=== PATIENT | female | born 1970 | race Caucasian/White ===

== ENCOUNTER 2016-08-22 09:05 | Day surgery (SDC) ==
[2016-08-22] MEDS ORDERED: BENADRYL ONE (09:33)
[2016-08-22] MEDS ORDERED: TYLENOL ONE (09:33)
[2016-08-22] MEDS ORDERED: NS 250 ML ONE (09:33)
[2016-08-22 12:53] VITALS: BP 94/68
[2016-08-22] MEDS ORDERED: HEPARIN ONE (12:54)
== END 2016-08-22 13:00 | disposition home or self-care (01) ==
LOC: INF 09:05
PROVIDERS: ATTEND Internal Medicine Hematology & Oncology
DX: D64.9 Anemia, unspecified (principal); Z79.899 Other long term (current) drug therapy; Z79.01 Long term (current) use of anticoagulants
CPT/HCPCS: 36430; 36591; 86850; 86900; 86901; 86920; J7050; P9016

== ENCOUNTER → 2016-09-15 | Day surgery (SDC) ==
[2016-09-14 13:48] LABS: HEMATOCRIT 22.5 % (37.0-47.0)
[~2016-09-15] MED LIST: BENADRYL PO ONE; HEPARIN IV ONE; NS 250 ML IV SCH; TYLENOL PO ONE; [UNRECOGNIZED DRUG - REMARK] MISC ONE
[2016-09-15 13:55] VITALS: BP 138/59
== END | disposition home or self-care (01) ==
LOC: P.INF 07:59
PROVIDERS: ATTEND Internal Medicine Hematology & Oncology
DX: C50.919 Malignant neoplasm of unspecified site of unspecified female breast (principal); D63.0 Anemia in neoplastic disease
CPT/HCPCS: 36430; 85014; 85018; 86850; 86900; 86901; 86920; 96374; J7050; P9016

== ENCOUNTER 2016-10-04 13:08 | Observation (INO) ==
[2016-10-04] MEDS ORDERED: ZOFRAN IV ONE (14:30)
[2016-10-04] MEDS ORDERED: MORPHINE IV ONE (14:30)
[2016-10-04 15:11] LABS: BASO% 0.2 % (0.0-0.8); EOS# 0.04 X1000 (0.0-0.7); EOS% 0.7 % (0.0-10.0); HEMATOCRIT 19.4 % (37.0-47.0); HEMOGLOBIN 6.3 g/dL (12.0-16.0); IMM GRAN# 0.66 X1000 (0.0-0.04); IMM GRAN% 10.9 % (0.0-0.5); LYMPH# 0.46 X1000 (1.2-3.4); LYMPH% 7.6 % (20.5-51.1); MANUAL DIFF NEEDED? YES; MCH 27.5 PG (27-31); MCHC 32.5 g/dL (33-37); MCV 84.7 FL (81-99); MONO% 9.9 % (1.7-9.3); NEUT% 70.7 % (42.2-75.2); PLT 68 X1000 (130-400); RBC 2.29 XMIL (4.2-5.4)
[2016-10-04 15:37] LABS: ALKALINE PHOSPHATASE 121 U/L (32-104); POTASSIUM 3.2 mmol/L (3.5-5.1)
[2016-10-04] MEDS ORDERED: NS 500 ML ONE (15:47)
--- NOTE | 2016-10-04 15:53 | PROVIDER DOCUMENTATION ---
This chart was entered by Joey Johnson Scribe, acting as scribe for Katelyn Veloz MD. HPI-General Adult - General Chief Complaint: Abnormal Lab[s] Stated Complaint: symptomatic anemia Time Seen by Provider: 10/04/16 13:31 Source: patient Allergies/Adverse Reactions: Patient Allergies Allergy/AdvReac Type Severity Reaction Status Date / Time No Known Allergies Allergy Verified 10/04/16 14:02 Home Medications: Home Medication List Medication Instructions Recorded Confirmed Last Taken Type Warfarin [Coumadin] 1 mg PO QHS 11/05/14 10/04/16 08/21/16 22:00 History Cetirizine HCl [Zyrtec] 10 mg PO DIRECTED 11/10/14 10/04/16 08/08/16 History Hydrocodone/APAP 10 mg/325 mg 1 each PO Q4H PRN PRN #20 tablet 09/16/1508/21/16 17:00 Rx [[place]-10] Ondansetron [Zofran] 4 mg PO Q4H PRN PRN #10 tablet 09/16/15 10/04/16 08/11/16 17:00 Rx Multivitamins/Iron [Hemocyte Plus 1 each PO DAILY #100 capsule 09/25/1508/22/16 08:00 Rx Capsule] Diphenoxylate/Atropine [Lomotil] 1 each PO 4XDAY PRN PRN 05/05/16 10/04/1607/05 History Promethazine [Phenergan] 25 mg PO Q3-4H PRN PRN 08/05/16 10/04/16 08/12/16 07: 30 History Fluconazole [Diflucan] 100 mg PO DIRECTED 08/12/16 10/04/16 08/12/16 07:00 History Levofloxacin [Levaquin] 750 mg PO DAILY #5 tablet 08/12/16 10/04/16 08/19/16 08: 00 Rx Potassium 0 mg PO DAILY 08/12/16 10/04/16 08/21/16 08:00 History - History of Present Illness -Gen Adult Nature of Presenting Problems: Patient is a 46 y/o F that presents with 48 hours of generalized weakness, fatigue, and shortness of breath with exertion. patient was at [facility] today and told she needed blood. Last blood transfusion was 3 weeks ago. Patient has Stage 4 Breast CA with mets to brain, liver, and lung. She denies fever/chills, cough, or diarrhea. Sent from 's office, H&H was 7 and 21. Location of Pain/Injury: reports: generalized Quality of Pain: reports: aching, other (weakness) Severity: reports: moderate Onset/Duration: reports: gradual, other (48 hours) Timing: reports: still present, getting worse Context/Activities at Onset: reports: none Modifying Factors: improves with: nothing Associated Symptoms: reports: EENT symptoms, fatigue, malaise, nausea, shortness of breath, vomiting, weakness. denies: back/neck pain, chest pain, diarrhea, fever/chills, genitourinary problems Similar Symptoms Previously?: Yes Recently seen or treated by another doctor?: Yes Review of Systems - Adult - REVIEW OF SYSTEMS - ADULT Constitutional: reports: fatique. denies: chills, fever Eyes: reports: no symptoms reported Ears, Nose, Mouth & Throat: reports: epistaxis. denies: ear discharge, ear pain , throat pain Cardiovascular: denies: chest pain, palpitations, syncope Respiratory: reports: dyspnea on exertion, shortness of breath Gastrointestinal: reports: nausea, vomiting. denies: abdominal pain, diarrhea Genitourinary: reports: no symptoms reported Musculoskeletal: reports: muscle weakness. denies: back pain, joint pain, neck pain Integumentary: reports: no symptoms reported Neurological: denies: dizziness/vertigo, headache/migraines, numbness, paresthesia Psychiatric: reports: no symptoms reported Endocrine: reports: no symptoms reported Hematologic/Lymphatic: reports: no symptoms reported Allergic/Immunologic: reports: no symptoms reported All Other Systems: Reviewed and Negative Past History - Adult - PAST MEDICAL HISTORY-ADULT Review of Records: reports: Old Records Reviewed, Nursing Assessment Review, Medications Reviewed Gastrointestinal: reports: other (chronic diarrhea) Obstetrical/Gynecological: reports: other (Breast CA-with mets to liver,lung, brain) - PRIOR SURGERIES/PROCEDURES Surgical/Procedure History: reports: cholecystectomy, , tonsillectomy, breast (B mastectomies) - PRIOR HOSPITALIZATIONS Prior Hospitalizations: reports: other (for n/v/d last week) - IMMUNIZATION STATUS Childhood Immunizations: UTD Flu Vaccine: See Nurse Assessment - FAMILY HISTORY Family History: reviewed, not pertinent - SOCIAL HISTORY Smoking: non-smoker Living Situation: family Physical Exam-General - PHYSICAL EXAM-ADULT Initial Vital Signs Reviewed: Yes - CONSTITUTIONAL General Appearance: alert, other (chronic ill appearing) - EYES Eyes: PERRL/EOMI, pink conjunctivae - HEAD, EARS, NOSE, MOUTH & THROAT HENMT: normocephalic/atraumatic, moist mucous membranes, normal ENT inspection - NECK Neck: full range of motion, normal inspection - RESPIRATORY Respiratory: no respiratory distress, no accessory muscle use, other (mild shortness of breath) - CARDIOVASCULAR Cardiovascular: no edema, no murmur, tachycardia - GASTROINTESTINAL (ABDOMEN) Abdominal Exam: normal bowel sounds, non tender, soft - MUSCULOSKELETAL Extremity: normal range of motion, no pedal edema, other (clubbing to fingers) - SKIN Integumentary: warm/dry, pallor - NEUROLOGIC Neurologic: grossly normal, no motor/sensory deficits - PSYCHIATRIC Psych/Mental Status: normal mood/affect, normal thought content, normal thought process, oriented x 3 Progress - PLAN OF CARE/RESULTS Progress/Plan/Lab Results: Vital Signs - 8 hr 10/04/16 13:17 Temperature 98.1 F Pulse Rate 115 H Respiratory Rate 18 Blood Pressure 101/51 O2 Sat by Pulse Oximetry 100 Vital Signs Temp Pulse Resp BP Pulse Ox 10/04/16 13:17 98.1 F 115 H 18 101/51 100 No Known Allergies Allergy (Verified 10/04/16 14:02) Warfarin [Coumadin] 1 mg PO QHS 11/05/14 Cetirizine HCl [Zyrtec] 10 mg PO DIRECTED 11/10/14 Hydrocodone/APAP 10 mg/325 mg [[place]-10] 1 each PO Q4H PRN PRN #20 tablet Ondansetron [Zofran] 4 mg PO Q4H PRN PRN #10 tablet 09/16/15 Multivitamins/Iron [Hemocyte Plus Capsule] 1 each PO DAILY #100 capsule Diphenoxylate/Atropine [Lomotil] 1 each PO 4XDAY PRN PRN 05/05/16 Promethazine [Phenergan] 25 mg PO Q3-4H PRN PRN 08/05/16 Fluconazole [Diflucan] 100 mg PO DIRECTED 08/12/16 Levofloxacin [Levaquin] 750 mg PO DAILY #5 tablet 08/12/16 Potassium 0 mg PO DAILY 08/12/16 Laboratory 10/04/16 10/04/16 14:22 14:22 WBC 6.04 RBC 2.29 L Hgb 6.3 L Hct 19.4 L MCV 84.7 MCH 27.5 MCHC 32.5 L RDW Std Deviation 18.7 H Plt Count 68 L MPV Not Reportable Immature Gran % (Auto) 10.9 H Neut % (Auto) 70.7 Lymph % (Auto) 7.6 L [place] % (Auto) 9.9 H Eos % (Auto) 0.7 Baso % (Auto) 0.2 Immature Gran # (Auto) 0.66 H Neut # (Auto) 4.27 Lymph # (Auto) 0.46 L [place] # (Auto) 0.60 H Eos # (Auto) 0.04 Baso # (Auto) 0.01 Segmented Neutrophils Cancelled Band Neutrophils Cancelled Lymphocytes Cancelled Monocytes Cancelled Eosinophils Cancelled Basophils Cancelled Metamyelocytes Cancelled Myelocytes Cancelled Promyelocytes Cancelled Nucleated RBCs Cancelled Atypical Lymphocytes Cancelled Blast Cells Cancelled Hypochromia Cancelled Vacuolization Cancelled Toxic Granulation Cancelled Dohle Bodies Cancelled Large Platelets Cancelled Polychromasia Cancelled Poikilocytosis Cancelled Basophilic Stippling Cancelled Anisocytosis Cancelled Microcytosis Cancelled Macrocytosis Cancelled Spherocytes Cancelled Sickle Cells Cancelled Target Cells Cancelled Ovalocytes Cancelled Stomatocytes Cancelled [place] Bodies Cancelled Samantha Cells Cancelled Unidentified Cells Cancelled Schistocytes Cancelled Crossmatch See Detail Orders Category Date Time Status IV Insertion ORDERED Care 10/04/16 14:29 Completed Transfuse .Give-Transfuse Care 10/04/16 14:49 Active CBC WITH DIFF [HEME] Stat Lab 10/04/16 14:22 Completed COMPREHENSIVE METABOLIC PANEL [CHEM] Stat Lab 10/04/16 14:22 Received PRBC [LRPC (RED CELLS)] [BBK] Stat Lab 10/04/16 14:22 Results TYPE & SCREEN [BBK] Stat Lab 10/04/16 14:22 Results Morphine Med 10/04/16 14:30 Discontinued 4 mg IV NOW ONE Ondansetron [Zofran] Med 10/04/16 14:30 Discontinued 4 mg IV NOW ONE Result Diagrams: 10/04/16 14:22 - CONSULTS/PCP/HOSPITALIST Notification #1 *Consult/PCP/Hospitalist*: ( airline lounge receptionist for hospitalist) Time Discussed: 15:20 Consult Disposition: Will see in ED, Admit Departure - Departure Time of Disposition Decision: 15:25 DIAGNOSIS: Breast cancer, stage 4 Qualifiers: Laterality: unspecified laterality Qualified Code(s): C50.919 - Malignant neoplasm of unspecified site of unspecified female breast Anemia Qualifiers: Anemia type: other cause Disposition: ADMITTED INPATIENT 09 Certified Medical Emergency: Emergent Condition: Stable Referrals and Follow-Ups: None,PCP [Primary Care Provider] - This chart was documented by the indicated scribe, (Joey Johnson, Scribe) and accurately reflects the services I performed and decisions made by me, Katelyn Veloz MD, as attested by the provider's signature.
--- NOTE | 2016-10-04 16:15 | Diag Imaging Result Document ---
PROCEDURE NAME: CHEST-2 VIEWS - 10/04/2016 2 VIEWS OF THE CHEST: FINDINGS: There is a Port-A-Cath on the right with its tip in the superior vena cava. There are nodular opacities in throughout the lungs, some of which are clearly larger than they were on 05/05/2016. Most notably are nodules in the right costophrenic sulcus and the right upper lobe which are clearly larger than they were previously. There is also a generalized increase in density in the retrocardiac region of the left lower lobe. IMPRESSION: Worsening metastatic disease.
[2016-10-04 16:19] LABS: INR 1.19; PROTIME 12.6 Seconds (9.2-11.7)
[2016-10-04] MEDS ORDERED: BENADRYL ONE (16:19)
[2016-10-04] MEDS ORDERED: TYLENOL ONE (16:20)
[2016-10-04 16:33] LABS: AGAP 15; ALBUMIN 2.9 g/dL (3.5-5.0); BUN 14 mg/dL (8-22); CALCIUM 7.6 mg/dL (8.8-10.2); CHLORIDE 97 mmol/L (98-107); COSMO 269; GOT 16 U/L (10-30); GPT < 5 U/L (10-36); SODIUM 134 mmol/L (136-145); TCO2 22 mmol/L (25-35); TOTAL BILIRUBIN 0.37 mg/dL (0.20-1.00); TOTAL PROTEIN 5.8 g/dL (6.3-8.3)
[2016-10-04] MEDS ORDERED: BENADRYL PO ONE (16:37)
[2016-10-04] MEDS ORDERED: TYLENOL PO ONE (16:38)
--- NOTE | 2016-10-04 16:53 | HISTORY AND PHYSICAL ---
HISTORY OF PRESENT ILLNESS: This is a 46-year-old who presented the emergency room from Dr. Charlie encarnacion. She has a history of metastatic breast cancer stage IV. She was 1st diagnosed originally in 2013, underwent bilateral mastectomies and chemotherapy and I believe radiation but was doing fine until early this year they found metastasis intraabdominal organs and various bones so skeletal metastasis as well. She received Taxol and other chemotherapy agents and this is her 2nd round of chemotherapy agents. She was at [facility] and they did some blood work. Hemoglobin was 7, when she came here hemoglobin was 6. She denies any known bleeding from any orifice. No blood in the stool that she recognized. No gross hematuria. She has just felt pretty bad, very weak with increased dyspnea on exertion and the aching all over but it is hard to tell some of this she feels is from mostly this from chemotherapy. So we plan to admit her, give her 2 units packed red blood cells. PAST MEDICAL HISTORY: Pretty unremarkable. ALLERGIES: No known drug allergies. FAMILY HISTORY: Breast cancer is in her grandmother. Apparently she did not have any genetic propensity, had screening done, she was HR positive but later but she was receptor negative. SOCIAL HISTORY: , 2 children, negative for alcohol or tobacco. PAST SURGICAL HISTORY: Bilateral mastectomy, cholecystectomy and . REVIEW OF SYSTEMS: No dramatic change in weight she although she has been losing weight.HEENT: Unremarkable. Just general malaise. Respiratory: No increased work of breathing except increased dyspnea on exertion but no orthopnea, paroxysmal nocturnal dyspnea. Cardiovascular: No chest pain or tachy palpitations. GI/: No complaints. Endocrinologic/Hematologic: No significant history. PHYSICAL EXAMINATION: GENERAL: Well developed, thin white female with conjunctiva pallor and gums as well. She appears pale. CVP less than 6 cm. LUNGS: Clear in all lung lisa. CARDIOVASCULAR: Regular rate without murmur or S3. ABDOMEN: Soft. SKIN: Is warm and dry. EXTREMITIES: Good peripheral pulses radial, carotid, femoral and popliteal. LAB: White count 6040, hematocrit is 19, hemoglobin 6.3, platelet count 68,000. Chemistries. Sodium 136, potassium 3.2, chloride 98, rest are pending right now. Albumin is 3.0. ASSESSMENT/PLAN: 1. Metastatic breast cancer with anemia suspect probably slow blood loss anemia with combination of chronic disease, chronic anemia. Will give her 2 units packed red blood cells and give her some IV fluid. 2. Metastatic breast cancer receiving chemotherapy, active chemotherapy, Dr. Guerra will follow. Note she has slightly low platelet count but her white blood cell count looks good. Will wait on her electrolytes and make sure there is no renal dysfunction as well. cc: Jose Morel MD
[2016-10-04] MEDS ORDERED: LOMOTIL PO PRN (17:54)
[2016-10-04] MEDS ORDERED: TYLENOL PO PRN (17:54)
[2016-10-04] MEDS ORDERED: ZYRTEC PO PRN (17:54)
[2016-10-04] MEDS ORDERED: PHENERGAN PO PRN (17:54)
[2016-10-04] MEDS: NS 1,000 ML IV SCH (18:08)
[2016-10-04 18:42] LABS: FREE T4 1.42 ng/dL (0.93-1.70)
[2016-10-04] MEDS: PRILOSEC PO SCH (20:14)
[2016-10-04] MEDS: NORCO-10 PO PRN (21:49)
[2016-10-05] MEDS: ZOFRAN IV PRN ×2 (01:20→06:51)
[2016-10-05] MEDS: NORCO-10 PO PRN ×3 (02:24→10:58)
[2016-10-05 04:19] LABS: URINE MICRO REVIEW NEEDED? NO; URINE SOURCE CLEAN CATCH
[2016-10-05 04:24] LABS: BILIRUBIN URINE NEGATIVE (NEGATIVE); BLOOD URINE NEGATIVE (NEGATIVE); COLOR YELLOW; GLUCOSE URINE NEGATIVE (NEGATIVE); LEUKOCYTES URINE LARGE (NEGATIVE); NITRITE URINE NEGATIVE (NEGATIVE); PROTEIN URINE NEGATIVE (NEGATIVE); SP GRAVITY URINE 1.006; TURBIDITY URINE CLEAR (CLEAR); UROBILINOGEN URINE NORMAL (NORMAL)
[2016-10-05 04:26] LABS: UR EPITHELIAL CELLS <10 /HPF (<10); URINE BACTERIA NEGATIVE /HPF; URINE CULTURE NEEDED? YES; URINE RBC <10 /HPF (<10); URINE WBC TNTC /HPF (<10)
[2016-10-05 06:36] LABS: INR 1.15; PROTIME 12.2 Seconds (9.2-11.7); PTT 36.4 Seconds (22.0-36.0)
[2016-10-05 06:38] LABS: BASO% 0.2 % (0.0-0.8); EOS# 0.05 X1000 (0.0-0.7); EOS% 0.8 % (0.0-10.0); HEMATOCRIT 25.5 % (37.0-47.0); HEMOGLOBIN 8.6 g/dL (12.0-16.0); IMM GRAN# 0.59 X1000 (0.0-0.04); LYMPH# 0.45 X1000 (1.2-3.4); LYMPH% 6.9 % (20.5-51.1); MANUAL DIFF NEEDED? YES; MCH 28.6 PG (27-31); MCHC 33.7 g/dL (33-37); MCV 84.7 FL (81-99); MONO# 0.57 X1000 (0.11-0.59); MONO% 8.7 % (1.7-9.3); NEUT% 74.4 % (42.2-75.2); PLT 56 X1000 (130-400); RBC 3.01 XMIL (4.2-5.4)
[2016-10-05] MEDS: NS 1,000 ML IV SCH (06:47)
[2016-10-05 07:00] LABS: AGAP 13; ALBUMIN 2.5 g/dL (3.5-5.0); ALKALINE PHOSPHATASE 104 U/L (32-104); BUN 10 mg/dL (8-22); CALCIUM 7.4 mg/dL (8.8-10.2); CHLORIDE 105 mmol/L (98-107); COSMO 280; GOT 13 U/L (10-30); GPT < 5 U/L (10-36); POTASSIUM 3.4 mmol/L (3.5-5.1); SODIUM 141 mmol/L (136-145); TCO2 23 mmol/L (25-35); TOTAL BILIRUBIN 0.36 mg/dL (0.20-1.00); TOTAL PROTEIN 5.4 g/dL (6.3-8.3)
[2016-10-05 07:02] LABS: BANDS 12 % (0-1); LYMPHS 10 % (21-51); MONO 8 % (1-9)
[2016-10-05] MEDS: PRILOSEC PO SCH (08:48)
[2016-10-05] MEDS ORDERED: HEMOCYTE PLUS CAPSULE PO SCH (09:00)
[2016-10-05] MEDS ORDERED: MIRALAX PO SCH (09:00)
--- NOTE | 2016-10-05 10:12 | DISCHARGE SUMMARY ---
ADMISSION DATE: 10/04/2016 DISCHARGE DATE: 10/05/2016 HISTORY OF PRESENT ILLNESS: This is a 46-year-old who was admitted yesterday by me, who came from Dr. Guerra's office. She has history of metastatic breast cancer stage IV, first diagnosed with breast cancer in 2013. Underwent bilateral mastectomies, chemotherapy and, I believe, radiation treatment. Metastasis found earlier this year, metastasis to her anterior abdominal organs and bony metastasis. She is receiving Taxol and chemotherapy. Presented with profound anemia, weakness, and hemoglobin less than 7. HOSPITAL COURSE: We gave her 2 units of blood. She does feel better, tolerated it well. Volume status looks good. Her other laboratories are hemoglobin 6.3, after transfusion 8.6; hematocrit 19.4 and came up to 25. Electrolytes look good. Potassium 3.4. Creatinine 0.3. B12 was greater than 2000. Folate was 8.6, so I will put her on a little bit of folate. Plan to let her go home. This will be pending on Oncology/Hematology, Dr. Guerra. We will see if we can get her set to go home. Note that her chest x-ray showed worsening metastatic disease, Port-A-Cath in the right with its tip in the superior vena cava, and opacities to the lungs. PLAN: We will set her up to go home pending Dr. Guerra's wishes. DISCHARGE MEDICATIONS: She has MiraLAX 17 g a day, Prilosec 40 mg b.i.d., she is on Hemocyte Plus capsule 1 a day, Lomotil 1 p.o. 4 times a day p.r.n., Zyrtec 10 mg p.r.n., and takes Roberts 10 1 q.4 hours p.r.n. FOLLOWUP: With Dr. Guerra. cc: Jose Morel MD
[2016-10-05 14:24] VITALS: BP 104/50
== END 2016-10-05 14:42 | disposition home or self-care (01) ==
LOC: ED 13:08 → INTOOBSV 16:32 → EDIPHOLD 16:32 → 3N 17:28
PROVIDERS: ATTEND Emergency Medicine

== ENCOUNTER 2016-10-09 12:22 | Inpatient (IN) ==
[2016-10-09] MEDS ORDERED: AFRIN NASAL SPRAY ONE (12:29)
[2016-10-09] MEDS ORDERED: SODIUM CHLORIDE 0.9% INJ ONE (12:41)
[2016-10-09] MEDS ORDERED: PROTONIX IV ONE (12:41)
[2016-10-09] MEDS ORDERED: DILAUDID IV ONE ×2 (12:50→15:16)
[2016-10-09 12:59] LABS: BASO% 0.5 % (0.0-0.8); EOS# 0.02 X1000 (0.0-0.7); EOS% 0.2 % (0.0-10.0); HEMATOCRIT 27.3 % (37.0-47.0); IMM GRAN# 0.54 X1000 (0.0-0.04); IMM GRAN% 5.4 % (0.0-0.5); LYMPH# 0.92 X1000 (1.2-3.4); LYMPH% 9.2 % (20.5-51.1); MANUAL DIFF NEEDED? YES; MCH 28.6 PG (27-31); MCV 86.7 FL (81-99); MONO# 0.43 X1000 (0.11-0.59); MONO% 4.3 % (1.7-9.3); NEUT% 80.4 % (42.2-75.2); PLT 48 X1000 (130-400); RBC 3.15 XMIL (4.2-5.4)
[2016-10-09 13:06] LABS: AGAP 21; ALBUMIN 2.6 g/dL (3.5-5.0); ALKALINE PHOSPHATASE 128 U/L (32-104); BUN 11 mg/dL (8-22); CALCIUM 8.6 mg/dL (8.8-10.2); CHLORIDE 96 mmol/L (98-107); COSMO 274; GOT 21 U/L (10-30); GPT < 5 U/L (10-36); POTASSIUM 3.5 mmol/L (3.5-5.1); SODIUM 137 mmol/L (136-145); TCO2 20 mmol/L (25-35); TOTAL BILIRUBIN 0.48 mg/dL (0.20-1.00); TOTAL PROTEIN 5.9 g/dL (6.3-8.3)
[2016-10-09 13:08] LABS: INR 1.3; PROTIME 13.9 Seconds (9.2-11.7)
[2016-10-09 13:16] LABS: BANDS 6 % (0-1); EOS 2 % (1-10); LYMPHS 10 % (21-51); MONO 4 % (1-9); NRBC 2 % (0-0)
[2016-10-09 13:18] LABS: LARGE PLATELETS OCCASIONAL; POLYCHROM OCCASIONAL
[2016-10-09 13:25] LABS: PTT 51.9 Seconds (22.0-36.0)
[2016-10-09] MEDS: NS 1,000 ML IV PRN ×3 (13:28→19:46)
--- NOTE | 2016-10-09 15:03 | PROVIDER DOCUMENTATION ---
This chart was entered by Carla Kc Scribe, acting as scribe for Fransico Dee MD. HPI-EENT General - General Stated Complaint: NOSE BLEED Time Seen by Provider: 10/09/16 12:23 Source: patient, EMS Allergies/Adverse Reactions: Patient Allergies Allergy/AdvReac Type Severity Reaction Status Date / Time No Known Allergies Allergy Unverified 10/09/16 12:54 Home Medications: Home Medication List Medication Instructions Recorded Confirmed Last Taken Type Multivitamins/Iron [Hemocyte Plus 1 each PO DAILY #100 capsule 09/25/1508/22/16 08:00 Rx Capsule] Promethazine [Phenergan] 25 mg PO Q3-4H PRN PRN 08/05/16 10/09/16 08/12/16 07: 30 History Bevacizumab [Avastin] 100 mg IV 10/09/16 09/28/16 History Doxorubicin HCl Liposomal [Doxil] 0 mg IV 10/09/16 09/28/16 History Dronabinol [Marinol] 0 mg PO BID 10/09/16 10/09/16 10/09/16 History Hydrocodone/Acetaminophen [[place] 0.5 each PO Q4-6H PRN PRN 10/09/16 10/09/16 08:00 History 10-325 Tablet] Ondansetron Odt [Zofran 4 mg Odt] 4 mg PO Q6H PRN PRN 10/09/16 10/09/16 Unknown History Potassium Chloride Powder Pkt 20 meq PO DAILY 10/09/16 10/09/16 10/07/16 History [Klor-Con Powder Packet] Warfarin [Coumadin] 1 mg PO QHS 10/09/16 10/09/16 10/07/16 History - History of Present Illness-EENT General Nature of Presenting Problem: Pt is a 46 yof who came to the ED via EMS with a cc of a nose bleed. Pt reports that she was blowing her nose this morning when her nose started to bleed and progressively got worse. Pt reports she is just had her last chemo treatment she also reports she doesn't have a nasal septum. Pt reports she is short of breath. EENT Location: reports: nose (bleeding) Quality of Pain: reports: none Onset/Duration: reports: this morning Timing: reports: still present Prearrival Treatment: Initiated squeezing nostrils Similar Symptoms Previously?: Yes - Nose Nose Problem Symptoms: nosebleed Review of Systems - Adult - REVIEW OF SYSTEMS - ADULT Constitutional: denies: chills, fever Eyes: denies: decreased vision, eye pain Ears, Nose, Mouth & Throat: reports: nose pain (bleeding). denies: ear pain, hoarseness, throat swelling Cardiovascular: denies: chest pain, poor circulation Respiratory: reports: no symptoms reported Gastrointestinal: reports: no symptoms reported Genitourinary: reports: no symptoms reported Musculoskeletal: reports: no symptoms reported Integumentary: denies: itching, nail changes Neurological: reports: no symptoms reported Psychiatric: reports: no symptoms reported Endocrine: reports: no symptoms reported Hematologic/Lymphatic: reports: no symptoms reported Allergic/Immunologic: reports: no symptoms reported All Other Systems: Reviewed and Negative Past History - Adult - PAST MEDICAL HISTORY-ADULT Review of Records: reports: Old Records Reviewed, Nursing Assessment Review Physical Exam- EENT - Physical Exam EENT Initial Vital Signs Reviewed: Yes General Appearance: alert, mild distress Nasal Exam: active bleeding Throat Exam: normal mouth inspection Neck: non-tender, full range of motion Respiratory: chest non-tender, lungs clear, normal breath sounds Cardiovascular: normal peripheral pulses, regular rate, rhythm, no edema Abdominal Exam: normal bowel sounds, non tender, soft Back Exam: normal inspection, no CVA tenderness Extremity: normal range of motion, non-tender Integumentary: normal color, pallor Neurologic: grossly normal Psych/Mental Status: normal mood/affect, normal thought content, normal thought process, oriented x 3 Progress - PLAN OF CARE/RESULTS Progress/Plan/Lab Results: Vital Signs - 8 hr 10/09/16 12:37 10/09/16 13:29 10/09/16 14:17 Pulse Rate 138 H 123 H Respiratory Rate 28 H 24 Blood Pressure 163/94 90/51 O2 Sat by Pulse Oximetry 96 98 97 Laboratory Results - last 24 hr 10/09/16 10/09/16 10/09/16 12:35 12:35 12:35 WBC 10.00 RBC 3.15 L Hgb 9.0 L Hct 27.3 L MCV 86.7 MCH 28.6 MCHC 33.0 RDW Std Deviation 17.6 H Plt Count 48 L MPV Not Reportable Immature Gran % (Auto) 5.4 H Neut % (Auto) 80.4 H Lymph % (Auto) 9.2 L [place] % (Auto) 4.3 Eos % (Auto) 0.2 Baso % (Auto) 0.5 Immature Gran # (Auto) 0.54 H Neut # (Auto) 8.04 H Lymph # (Auto) 0.92 L [place] # (Auto) 0.43 Eos # (Auto) 0.02 Baso # (Auto) 0.05 Segmented Neutrophils 74 Band Neutrophils 6 H Lymphocytes 10 L Monocytes 4 Eosinophils 2 Metamyelocytes 3.0 Myelocytes 1.0 Nucleated RBCs 2 H Large Platelets OCCASIONAL Polychromasia OCCASIONAL Poikilocytosis OCCASIONAL Anisocytosis 1+ PT 13.9 H INR 1.30 PTT (Actin FS) 51.9 H Sodium 137 Potassium 3.5 Chloride 96 L Carbon Dioxide 20 L Anion Gap 21 BUN 11 Creatinine 0.4 L Estimated GFR/1.73 m2 > 60 BUN/Creatinine Ratio 28 Glucose 104 Calculated Osmolality 274 Calcium 8.6 L Total Bilirubin 0.48 AST 21 ALT < 5 L Alkaline Phosphatase 128 H Total Protein 5.9 L Albumin 2.6 L Globulin 3.3 Albumin/Globulin Ratio 0.8 Blood Type Antibody Screen 10/09/16 12:35 WBC RBC Hgb Hct MCV MCH MCHC RDW Std Deviation Plt Count MPV Immature Gran % (Auto) Neut % (Auto) Lymph % (Auto) [place] % (Auto) Eos % (Auto) Baso % (Auto) Immature Gran # (Auto) Neut # (Auto) Lymph # (Auto) [place] # (Auto) Eos # (Auto) Baso # (Auto) Segmented Neutrophils Band Neutrophils Lymphocytes Monocytes Eosinophils Metamyelocytes Myelocytes Nucleated RBCs Large Platelets Polychromasia Poikilocytosis Anisocytosis PT INR PTT (Actin FS) Sodium Potassium Chloride Carbon Dioxide Anion Gap BUN Creatinine Estimated GFR/1.73 m2 BUN/Creatinine Ratio Glucose Calculated Osmolality Calcium Total Bilirubin AST ALT Alkaline Phosphatase Total Protein Albumin Globulin Albumin/Globulin Ratio Blood Type A POSITIVE Antibody Screen NEGATIVE Orders Category Date Time Status Saline Loc DIRECTED Care 10/09/16 12:40 Active CBC WITH ELECTRONIC DIFF [HEME] Stat Lab 10/09/16 12:35 Completed COMPREHENSIVE METABOLIC PANEL [CHEM] Stat Lab 10/09/16 12:35 Completed PROTIME WITH INR [COAG] Stat Lab 10/09/16 12:35 Completed PTT [COAG] Stat Lab 10/09/16 12:35 Completed TYPE & SCREEN [BBK] Stat Lab 10/09/16 12:35 Completed 0.9% Sodium Chloride Inj [Ns] 1,000 ml Med 10/09/16 12:40 Active IV 125 mls/hr Hydromorphone [Dilaudid] Med 10/09/16 12:50 Discontinued 0.5 mg IV NOW ONE Oxymetazoline Nasal Elizabeth [Afrin Nasal Elizabeth] Med 10/09/16 12:29 Discontinued 15 ml .ROUTE .STK-MED ONE Pantoprazole [Protonix] Med 10/09/16 12:41 Discontinued 40 mg IV NOW ONE Sodium Chloride 0.9% Med 10/09/16 12:41 Discontinued 10 ml INJ NOW ONE Result Diagrams: 10/09/16 12:35 10/09/16 12:35 Procedures - ENT PROCEDURES Nasal Drops Instilled: [place]-Synephrine Inspection: Nasal Speculum Departure - Departure Time of Disposition Decision: 15:02 DIAGNOSIS: Dyspnea, Epistaxis Disposition: ADMITTED INPATIENT 09 Certified Medical Emergency: Emergent Condition: Stable Attestation - Physician/ JODY Attestation Patient care was provided by Advanced Practice Provider:: Yes Advanced Practice Provider documentation review:: The Mid-level provider documentation, treatment plan and medical decision making was reviewed by the physician who agrees with all treatment and medical decision making by the MLP. The physician spent face to face time with patient:: Yes Advanced Practice Provider documentation review:: The physician spent face to face time with this patient and agrees with all MLP documentation, treatment, and medical decision making by the MLP. See provider notes for further information. This chart was documented by the indicated scribe, (Carla Kc Scribe) and accurately reflects the services I performed and decisions made by me, Fransico Dee MD, as attested by the provider's signature.
--- NOTE | 2016-10-09 16:25 | HISTORY AND PHYSICAL ---
PRIMARY ONCOLOGIST: Pj Guerra MD HISTORY OF PRESENT ILLNESS: This is a 46-year-old female with history of metastatic breast cancer who presented to the emergency department because she was getting weak for the last few days and she reports that she started having profuse nasal bleeding so she was seen in the emergency department and finally the nose bleeding was controlled. The patient reports that she was supposed to be seen by Dr. Guerra next Monday but apparently the chemo which she already received 3 cycles, she was told that they will hold the treatment until this patient is some is feeling much better because it seems like she was not able to tolerate any chemo at that time. In any case, we are going to admit her to the hospital. We will provide pain medication and fluid resuscitation. We are going to consult Dr. Guerra to see he see if this patient needs to receive work of if she needs to go to a rehab facility to regain some strength and then be able to continue with chemotherapy or not. PAST MEDICAL HISTORY: Unremarkable. PAST SURGICAL HISTORY: Bilateral mastectomy, cholecystectomy and a and a port catheter placement. SOCIAL HISTORY: The patient denies drinking alcohol, smoking tobacco, she is and has 2 kids FAMILY HISTORY: Positive for breast cancer in grandmother. REVIEW OF SYSTEMS: Eleven systems were reviewed and all symptoms are related to H P. PHYSICAL EXAMINATION: VITAL SIGNS: There is no temperature recorded in the ER, heart rate 122, respiratory rate 24, blood pressure 90/60. O2 saturation 93% on 3 L nasal cannula. GENERAL: This is a chronically ill-looking and frail 46-year-old female lying in bed, in no acute distress. HEENT: Normocephalic, atraumatic. Anicteric sclerae and pale conjunctivae. Mucous membranes moist. NECK: Supple. No JVD noted. No carotid bruits. No lymphadenopathy. No thyromegaly. CARDIOVASCULAR: S1, S2 heard. No murmurs, gallops, or rubs. Regular rate and rhythm. RESPIRATORY: Clear bilaterally to auscultation. No work of breathing or using accessory muscles. Port-A-Cath placed in the left side of the chest wall. No signs of infection. ABDOMEN: Soft, a little bit distended but nontender to palpation. Bowel sounds present. No organomegaly. EXTREMITIES: No clubbing or cyanosis. Mild edema 1+ in both lower extremities. NEUROLOGIC: The patient is alert and oriented x3. Able to move 4 extremities. Cranial nerves 2- 12 grossly normal. LABORATORY DATA: White cell count 10, hemoglobin 9, hematocrit 27.3, platelets 48,000 with BMP that is unremarkable. ASSESSMENT: 1. Nose bleeding. 2. Metastatic breast cancer. 3. Anemia of chronic disease. 4. Physical deconditioning. PLAN: The patient is admitted to the hospital because of physical deconditioning and also nose bleeding that by now is controlled. We are going to consult his primary oncologist, Dr. Guerra and we will see if this patient requires placement and we will see what he has to say tomorrow. Regarding physical deconditioning, we are going to consult physical therapy. For breast cancer, we will leave the decision to start medication to Dr. Guerra. cc: Brendan Keane MD
--- NOTE | 2016-10-09 16:36 | Diag Imaging Result Document ---
PROCEDURE NAME: CHEST-1 VIEW - 10/09/2016 CHEST, 1 VIEW: FINDINGS: Compared with 10/04/2016. Heart size is normal. There are scattered nodular densities compatible with previously identified metastatic disease. There is ill-defined infiltrate at the left base which appears to be increased. There is no pleural effusion or pneumothorax identified. Central venous catheter remains in place. IMPRESSION: Mild increase in the infiltrate at left base.
[2016-10-09] MEDS ORDERED: DILAUDID IV PRN (16:40)
[2016-10-09] MEDS: SODIUM CHLORIDE 0.9% INJ SCH (17:20)
[2016-10-09] MEDS: PROTONIX IV SCH (17:20)
[2016-10-09] MEDS: NORCO-10 PO SCH ×2 (18:02→19:58)
[2016-10-09] MEDS: PHENERGAN PO PRN (19:46)
[2016-10-09] MEDS: MARINOL PO SCH (19:59)
[2016-10-09] MEDS ORDERED: NS 1,000 ML IV ONE (20:37)
[2016-10-09 21:31] LABS: HEMATOCRIT 21.4 % (37.0-47.0); HEMOGLOBIN 6.9 g/dL (12.0-16.0)
[2016-10-10 01:20] LABS: HEMATOCRIT 25.3 % (37.0-47.0); HEMOGLOBIN 8.5 g/dL (12.0-16.0)
[2016-10-10] MEDS: NORCO-10 PO SCH ×6 (02:44→20:52)
[2016-10-10 06:21] LABS: BASO% 0.2 % (0.0-0.8); EOS# 0.02 X1000 (0.0-0.7); EOS% 0.3 % (0.0-10.0); HEMATOCRIT 25.8 % (37.0-47.0); HEMOGLOBIN 8.3 g/dL (12.0-16.0); IMM GRAN# 0.32 X1000 (0.0-0.04); IMM GRAN% 4.9 % (0.0-0.5); LYMPH# 0.47 X1000 (1.2-3.4); LYMPH% 7.1 % (20.5-51.1); MANUAL DIFF NEEDED? YES; MCH 27.9 PG (27-31); MCHC 32.2 g/dL (33-37); MCV 86.6 FL (81-99); MONO# 0.36 X1000 (0.11-0.59); MONO% 5.5 % (1.7-9.3); RBC 2.98 XMIL (4.2-5.4)
[2016-10-10 06:22] LABS: AGAP 18; BUN 8 mg/dL (8-22); CALCIUM 7.6 mg/dL (8.8-10.2); CHLORIDE 106 mmol/L (98-107); COSMO 284; POTASSIUM 3.3 mmol/L (3.5-5.1); SODIUM 144 mmol/L (136-145); TCO2 20 mmol/L (25-35)
[2016-10-10 06:23] LABS: PLT 35 X1000 (130-400)
[2016-10-10 06:42] LABS: BANDS 6 % (0-1); LYMPHS 8 % (21-51); NRBC 1 % (0-0)
[2016-10-10 06:44] LABS: HYPOCHROM 1+; LARGE PLATELETS 1+; POLYCHROM 1+
[2016-10-10] MEDS: ZOFRAN ODT PO PRN (07:01)
[2016-10-10] MEDS: NS 1,000 ML IV PRN (07:53)
[2016-10-10] MEDS: HEMOCYTE PLUS CAPSULE PO SCH (08:44)
[2016-10-10] MEDS: MARINOL PO SCH ×2 (08:44→20:53)
--- NOTE | 2016-10-10 12:32 | PROGRESS NOTE ---
DATE: 10/10/2016 SUBJECTIVE: Patient reports feeling fine. Denies any fever or chills. Denies any shortness of breath. OBJECTIVE: Vital Signs: Temperature 98.3 degrees, heart rate 109, respiratory rate 18, blood pressure 105/47, O2 saturation 92% on non-rebreather mask. General Examination: This is a chronically ill-looking and frail, 46-year-old female lying in bed, in no acute distress. HEENT: Head is normocephalic, atraumatic. Anicteric sclerae. Very pale conjunctivae. Mucous membranes dry. Neck: Supple. No JVD noted. No carotid bruits. No lymphadenopathy. No thyromegaly. Cardiovascular: S1, S2 heard. Tachycardic. No murmurs, gallops, or rubs. Regular rate and rhythm. Respiratory: Clear bilaterally to auscultation. No work of breathing or using accessory muscles. Abdomen: Soft. Nontender to palpation. Bowel sounds present. No organomegaly. Extremities: No clubbing or cyanosis. Mild edema 1+ in both lower extremities. Neurological: Patient is awake, alert, and oriented x3. Moves 4 extremities. LABORATORY DATA: White cell count 6.59, hemoglobin 8.3, hematocrit 25.8, platelets 35,000. Sodium 144, potassium 3.3, chloride 106, bicarbonate 20, BUN 8, creatinine 0.3. ASSESSMENT: 1. Metastatic breast cancer. 2. Nose bleeding. 3. Anemia of chronic disease. 4. Thrombocytopenia. 5. Physical deconditioning. PLAN: The patient was admitted to the hospital because of physical deconditioning and severe nose bleeding that finally we were able to control in the ER. Regarding metastatic breast cancer, will rechecked a CBC yesterday night and hemoglobin was 6.2 so we ordered a couple units of blood. Also the platelets are coming down from yesterday which was 48,000 to 35,000. At this time we agree with the 2 units of blood. We will leave the decision to hematology to transfuse platelets or not. As mentioned before, the nose bleeding has been controlled. Also for physical deconditioning, we have consulted physical therapy to see if this patient requires to go to a rehab facility or not. Also we have consulted Dr. Guerra to assist us in the management of this patient. cc: Brendan Keane MD
[2016-10-10] MEDS: DILAUDID IV PRN (13:07)
[2016-10-10] MEDS: SODIUM CHLORIDE 0.9% INJ SCH (17:40)
[2016-10-10] MEDS: PROTONIX IV SCH (17:40)
--- NOTE | 2016-10-10 21:58 | CONSULTATION ---
DATE OF CONSULTATION: 10/10/2016 ADMITTING PHYSICIAN: Dr. Bailey. REQUESTING PHYSICIAN: Dr. Bailey. We appreciate this consult. CHIEF COMPLAINT: Epistaxis. HISTORY OF PRESENT ILLNESS: Ms Frey is a pleasant 46-year-old female well known to Dr. Guerra with a history of metastatic breast cancer. She presented to [facility] secondary to profound weakness and profuse nasal bleeding that she was unable to control. The patient has been undergoing chemotherapy with Doxil and Avastin. She is status post cycle 2 day 1 on 09/28/2016. She was given a 1 week break following that time secondary to some deconditioning. We are asked to see the patient for discussion of continued chemotherapy and for followup. PAST MEDICAL HISTORY: Significant for metastatic breast cancer. Otherwise unremarkable. PAST SURGICAL HISTORY: Significant for. 1. Bilateral mastectomy. 2. Cholecystectomy. 3. . 4. Port-A-Cath placement. SOCIAL HISTORY: The patient does not use tobacco, alcohol or illicit drugs. FAMILY HISTORY: Positive for breast cancer in the patient's grandmother. MEDICATIONS ON ADMISSION: 1. Advil. 2. Aquoral mucosal spray. 3. Aspirin 81 mg. 4. Bactroban nasal ointment. 5. Benadryl 25 mg. 6. Biotene oral rinses. 7. Cefdinir. 8. Diflucan 100 mg tablet. 9. Lomotil. 10. EMLA cream. 11. Fluconazole. 12. Klor-Con. 13. Lunesta. 14. Magic mouthwash. 15. Marinol. 16. [place] 10 mg/325 mg. 17. Oxygen 2 L. 18. Phenergan gel. 19. Zofran. ALLERGIES: The patient has no known drug allergies. REVIEW OF SYSTEMS: A 14 point review of systems was obtained and is negative except as mentioned in the HPI. PHYSICAL EXAM: Ms Frey is a very pleasant 46-year-old female lying supine in bed who appears weak but is in no immediate distress.Vital Signs: Temperature 98.3, blood pressure 105/47, heart rate 109, respirations 18, O2 saturation 92% on room air. HEENT: Normocephalic, atraumatic. Mucous membranes are pale and somewhat dry. Sclerae is anicteric. Extraocular movements intact. Neck: Supple. Lungs: Clear to auscultation bilaterally. Chest expansion is equal bilaterally. CV: S1, S2 is heard without murmur, rub or gallop. Abdomen: Soft, nondistended, nontender. Bowel sounds positive all quadrants. No rebound or guarding noted. Extremities: Without clubbing, cyanosis, or edema. Dermatologic: No rashes, bruises or lesions. Neurologic: The patient is slightly somnolent but oriented x3. She has no focal deficit at this time. LABORATORY DATA: Hemoglobin 8.3, hematocrit 25.8, white blood cell count 6.59, platelets 35,000, ANC 5.41. Sodium 144, potassium 3.3, chloride 106, CO2 is 20, BUN 8, creatinine 0.3, glucose is 82. IMAGING STUDIES: Chest x-ray reveals left base mildly increased in infiltrate size. ASSESSMENT AND PLAN: 1. Metastatic breast cancer currently on Doxil and Avastin with last dose being September 14 and Neulasta following on September 15. We will hold chemotherapy for now until patient's current illness is improved. 2. Epistaxis currently controlled. Hemoglobin is 8.3 and platelet count is 35,000. 3. Anemia of chronic disease which is stable. Hemoglobin is 8.3. We will proceed with transfusion of 1 unit packed red blood cells secondary to symptomatic anemia. We will continue to follow CBC and transfuse as necessary. 4. Deconditioning. Physical therapy is currently following. 5. We will continue to follow and further recommendations pending outcome. The above reflects the history, exam, assessment and plan of Dr. Guerra. Dictated by VIOLET Vences for Pj Guerra MD cc: VIOLET Vences MD
[2016-10-11] MEDS: DILAUDID IV PRN ×4 (00:24→23:25)
[2016-10-11] MEDS: NORCO-10 PO SCH ×7 (01:19→20:12)
[2016-10-11] MEDS: NS 1,000 ML IV PRN (04:14)
[2016-10-11 06:30] LABS: BASO% 0.4 % (0.0-0.8); EOS# 0.03 X1000 (0.0-0.7); EOS% 0.4 % (0.0-10.0); HEMATOCRIT 33.7 % (37.0-47.0); HEMOGLOBIN 11.2 g/dL (12.0-16.0); IMM GRAN# 0.36 X1000 (0.0-0.04); IMM GRAN% 4.3 % (0.0-0.5); LYMPH# 0.62 X1000 (1.2-3.4); LYMPH% 7.3 % (20.5-51.1); MANUAL DIFF NEEDED? YES; MCH 28.1 PG (27-31); MCHC 33.2 g/dL (33-37); MCV 84.7 FL (81-99); MONO# 0.51 X1000 (0.11-0.59); NEUT% 81.6 % (42.2-75.2); PLT 32 X1000 (130-400); RBC 3.98 XMIL (4.2-5.4)
[2016-10-11 06:38] LABS: AGAP 18; BUN 8 mg/dL (8-22); CALCIUM 7.7 mg/dL (8.8-10.2); CHLORIDE 108 mmol/L (98-107); COSMO 285; POTASSIUM 3.4 mmol/L (3.5-5.1); SODIUM 144 mmol/L (136-145); TCO2 18 mmol/L (25-35)
[2016-10-11 06:56] LABS: BANDS 8 % (0-1); LYMPHS 8 % (21-51); MONO 2 % (1-9)
[2016-10-11] MEDS ORDERED: NS 250 ML ONE (08:40)
[2016-10-11] MEDS: PHENERGAN PO PRN (08:45)
[2016-10-11] MEDS: MARINOL PO SCH ×2 (10:08→20:12)
[2016-10-11] MEDS: HEMOCYTE PLUS CAPSULE PO SCH (10:08)
--- NOTE | 2016-10-11 14:03 | Diag Imaging Result Document ---
PROCEDURE NAME: CHEST-2 VIEWS - 10/11/2016 COMPARISON: 10/09/2016. FINDINGS: Stable right chest port in good position. There are grossly stable, numerous nodules throughout the lungs bilaterally. Stable significant infiltrate at the left hilum and lung base. This is mostly in the left lower lobe. There may also be a small left pleural effusion. No new infiltrates. IMPRESSION: No change from prior.
[2016-10-11] MEDS ORDERED: HEPARIN ONE (15:25)
--- NOTE | 2016-10-11 16:42 | Diag Imaging Result Document ---
PROCEDURE NAME: CT THORAX W/CONTRAST - 10/11/2016 CT CHEST WITH IV CONTRAST: COMPARISON: 06/06/2016. FINDINGS: Innumerable metastatic lesions are again noted throughout both lungs. This was also seen on the previous study. However, they have increased in both size and number during the interval. For reference, there is a mass in the right upper lobe medially on image 35 of series 6 that measures up to 1.7 x 1.5 cm axially (1.4 x 1.3 cm previously, remeasured). Most of the other lesions that were seen on the previous study have also increased at least somewhat in size. There has been interval development of a moderate to large sized left pleural effusion and there is left basilar atelectasis. There is questionable mild irregular thickening along the posterior parietal pleura. This is worrisome for a malignant effusion. There are a few prominent mediastinal lymph nodes that are actually similar to the previous study. There is a prominent left axillary steven mass that is similar to the previous study, but it is actually smaller and measures approximately. 5.1 x 4.3 cm axially (7.3 x 4.6 cm previously). There is a small loculated fluid collection inferior and medial to this mass that is similar to the previous study. Review of the upper abdomen reveals innumerable metastatic lesions throughout the liver. This has worsened during the interval. There is thickening of the right adrenal gland that is similar to the previous study. A metastatic lesion to the adrenal gland cannot be excluded. There is a chronic fracture involving the right humeral head with irregular healing. It is stable. No new bony lesions are identified. IMPRESSION: 1. Interval significant worsening of metastatic disease throughout both lungs with an increase in size and number of the innumerable metastatic lesions. 2. Worsening of metastatic disease to the liver. 3. Right adrenal mass worrisome for metastatic disease that is similar to the previous study. 4. Interval development of a [id number]-qhani sized left pleural effusion that is worrisome for a malignant effusion. 5. Left axillary steven mass is actually smaller than the previous study.
--- NOTE | 2016-10-11 17:35 | PROGRESS NOTE ---
DATE: 10/11/2016 SUBJECTIVE: This patient is complaining of shortness of breath and pain, she is alert and she is oriented x3. Family members at the bedside. I had a large conversation with the family about goals of care. Apparently, she has a Living Will that states that she does not want to be resuscitated and I discussed again with her all these, and she states she wants to think about that again. Family members at the bedside. OBJECTIVE: Vital Signs: Temperature 98.6, pulse 140, respiratory rate 22, blood pressure 92/62, oxygen saturation 96% on a mask 5 L of oxygen flow. HEENT: Head normocephalic. No trauma. PERRLA. Neck: Supple. Lungs: Decreased breath sounds at the level of the left lower lung with crackles, diffuse rhonchi bilaterally. Cardiovascular: RRR. No murmurs. Tachycardic. Abdomen: Soft, nontender, nondistended. No hepatosplenomegaly. Extremities: Trace lower extremity edema. No clubbing. No cyanosis. Neurological: The patient is alert and oriented x3. She has no motor focal deficits. LABORATORY: WBC 8.4, hemoglobin 11.2, hematocrit 33.7, platelets 32. Sodium 144, potassium 3.4, chloride 108, bicarbonate 18, BUN 8, creatinine 0.4, glucose 97, calcium 7.7. ASSESSMENT AND PLAN: 1. Metastatic breast cancer. We did a CT scan of the chest today and also an x-ray that showed an infiltrate on the left lower lung and also multiple metastatic lesions. She is having shortness of breath and hypotension. I had a conversation with the family about goals of care. Probably, I will consult tomorrow palliative care. I will start this patient on antibiotics. 2. Multiple lung metastases and left lower lobe infiltrate, suggestive of probably pneumonia. I will start this patient on cefepime and I will monitor. 3. Epistaxis, currently controlled. 4. Anemia of chronic disease. Stable. 5. Thrombocytopenia. The platelets are going down slowly, we will continue to monitor. Hematology/Oncology is following this patient. cc: Rufino Nathan MD
[2016-10-11] MEDS: PROTONIX IV SCH (17:59)
[2016-10-11] MEDS: MAXIPIME 1 GM/NS 1 GM/50 ML IVPB IV SCH (17:59)
[2016-10-11] MEDS ORDERED: CALMOSEPTINE OINTMENT TOP PRN (18:00)
[2016-10-12] MEDS: NORCO-10 PO SCH ×4 (01:24→12:36)
[2016-10-12] MEDS: NS 1,000 ML IV PRN ×2 (01:24→09:41)
[2016-10-12] MEDS: MAXIPIME 1 GM/NS 1 GM/50 ML IVPB IV SCH (05:13)
[2016-10-12 07:56] LABS: BASO% 0.6 % (0.0-0.8); EOS# 0.04 X1000 (0.0-0.7); EOS% 0.5 % (0.0-10.0); HEMATOCRIT 35.2 % (37.0-47.0); HEMOGLOBIN 11.6 g/dL (12.0-16.0); IMM GRAN% 3.6 % (0.0-0.5); LYMPH# 0.71 X1000 (1.2-3.4); LYMPH% 8.6 % (20.5-51.1); MANUAL DIFF NEEDED? YES; MCH 28.2 PG (27-31); MCV 85.6 FL (81-99); MONO# 0.56 X1000 (0.11-0.59); MONO% 6.8 % (1.7-9.3); NEUT% 79.9 % (42.2-75.2); RBC 4.11 XMIL (4.2-5.4)
[2016-10-12 08:33] LABS: BANDS 16 % (0-1); LYMPHS 6 % (21-51); MONO 2 % (1-9); NRBC 3 % (0-0)
[2016-10-12] MEDS: ZOFRAN ODT PO PRN (08:45)
[2016-10-12 09:27] LABS: INR 1.33; PROTIME 14.2 Seconds (9.2-11.7)
[2016-10-12] MEDS: DILAUDID IV PRN ×4 (09:27→15:38)
[2016-10-12] MEDS ORDERED: DULCOLAX PR ONE (09:29)
[2016-10-12] MEDS ORDERED: MIRALAX PO SCH (09:30)
[2016-10-12 10:35] LABS: PLT 33 X1000 (130-400)
--- NOTE | 2016-10-12 10:40 | PROGRESS NOTE ---
DATE: 10/12/2016 SUBJECTIVE: This patient is still complaining of shortness of breath, she has been constipated she is alert and oriented x3. Family members at the bedside. I had a conversation with this patient about her code status, after explaining the whole situation to her she decided to go ahead and ask for DNR level 1. OBJECTIVE: Vital Signs: Temperature 98.6 degrees, pulse 127, respiratory rate 16, blood pressure 102/59, O2 saturation 96% on a mask 8 L. HEENT: Head normocephalic. No trauma. PERRLA. Neck: Supple. No JVD. No masses. Central trachea. Lungs: Decreased breath sounds at the level of the mid and lower lung. Left lung, with diffuse crackles bilaterally and diffuse rhonchi bilaterally as well. Cardiovascular: RRR. No murmurs. Tachycardic. Abdomen: Soft. Mildly distended. Nontender. No hepatosplenomegaly. Extremities: Trace lower extremity edema. No clubbing. No cyanosis. Neurological: The patient is alert and oriented x3. She moves all 4 extremities. She has no motor or focal deficits. LABORATORY: WBC 8.2, hemoglobin 11.6, hematocrit 35.2, platelets 33,000. PT 14.2, INR 1.3, PTT 45.9. ASSESSMENT AND PLAN: 1. Metastatic breast cancer. We have a CT scan of the chest that showed an infiltrate of the left lower lung and also multiple metastatic lesions. She is having shortness of breath and hypotension, she also have a left pleural effusion, this patient is still complaining of shortness of breath. She has been getting fluids but she also has been having hypotension. I have consulted palliative care and also on the pulmonary department. 2. Multiple lung metastasis with left lower lobe infiltrate and pulmonary edema, this patient has been started on cefepime, probably this patient will have a thoracentesis but the platelet count is low, pulmonary department will see this patient and the oncology department is following this patient. They have recommended thoracentesis. 3. Epistaxis, currently controlled. 4. Thrombocytopenia compared with yesterday is about the same. We will continue to monitor. Hematology/Oncology is following this patient. 5. Respiratory failure, this patient is using a mask, and she is requiring high amounts of oxygen, she is still complaining of shortness of breath. Pulmonary department has been consulted. 6. Anemia of chronic disease. Stable. 7. This patient is DNR level 1. 8. Constipation. I will add MiraLAX daily and also Dulcolax suppository x1. cc: Rufino Nathan MD
[2016-10-12] MEDS: HEMOCYTE PLUS CAPSULE PO SCH (12:36)
[2016-10-12] MEDS: MARINOL PO SCH (12:37)
[2016-10-12 12:53] VITALS: BP 162/84
--- NOTE | 2016-10-12 16:03 | CONSULTATION ---
DATE OF CONSULTATION: 10/12/2016 PULMONARY CONSULTATION: REQUESTING PHYSICIAN: Dr. Navarrete. REASON FOR CONSULTATION: Pleural effusion and shortness of breath. HISTORY OF PRESENT ILLNESS: Ms. Frey is a 46-year-old white female who was diagnosed with breast cancer in April 2014. Initial biopsies were estrogen and progesterone receptor negative and HER-2/jeremiah positive. The patient underwent prophylactic radiation and possible chemotherapy before she underwent resection on 11/10/2014. 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 The receptor status was the same as the initial biopsy. She has remained under the treatment of Dr. Guerra. CT scan of the thorax and abdomen 06/14/2016 revealed worsening pulmonary metastasis and worsening liver disease when compared to 03/30/2016. The patient was admitted to the hospital last week for anemia and received a blood transfusion. The patient was readmitted to the hospital 10/09/2016 with increasing shortness of breath. CT scan of the thorax reveals continued worsening disease in the lung, progressive disease in the liver (both when compared to 05/2016), with a new moderate left-sided pleural effusion. Pulmonary consultation was requested. Upon my arrival to the room, patient was significantly tachypneic and her pupils were dilated. She received a dose of Dilaudid shortly after my arrival and comfort was achieved. PAST MEDICAL HISTORY: 1. Progressive breast cancer as per above. 2. Status post bilateral mastectomy. 3. Status post cholecystectomy. 4. Status post Port-A-Cath placement. SOCIAL HISTORY: Nonsmoker. No alcohol use. FAMILY HISTORY: Positive for breast cancer in a grandmother. PHYSICAL EXAMINATION: General: Reveals a chronically ill-appearing, white female, who was initially anxious and tachypneic upon presentation, with clinical improvement following Dilaudid. Vital Signs: Blood pressure 102/68, heart rate 130, respiratory rate 24, oxygen saturation 95%. She is afebrile. HEENT: Pupils are equal and reactive. Oropharynx is dry. Neck: Supple. Lung Exam: Reveals decreased breath sounds left base. No wheezing. No rhonchi. Cardiac Exam: Increased rate. Regular rhythm. Abdomen: Soft. Extremities: Reveal edema in both upper extremities. DIAGNOSTIC DATA: White blood count 8.26, hemoglobin 11.6, platelet count 33,000. Chemistry: Sodium 144, potassium 3.4, chloride 108, bicarbonate 18, BUN 8, creatinine 0.4. ProBNP is markedly elevated at 16,295. CT scan of the thorax is reviewed and is outlined in the HPI. IMPRESSION: An unfortunate 46-year-old with advanced metastatic breast cancer with CT scans over the last 4 months revealing continued progression of disease. The patient now has presented to the emergency room with shortness of breath at rest, new onset pleural effusion, worsening metastatic disease to the lungs, with marked increase in proBNP level. Her shortness of breath is out of proportion to the amount of fluid identified in the left hemithorax. I believe a significant amount of her effusion is likely related to her advanced parenchymal disease from the metastasis likely relating to a component of pulmonary hypertension. A thoracentesis has been ordered and might bring some transient benefit but I do not believe is the primary cause of her shortness of breath. Furthermore, her platelet counts are low and would have to be corrected prior to thoracentesis. I discussed this with the patient, the patient's mother and the patient's . At this juncture, would recommend continued opioids for air hunger. Thoracentesis could be considered. But at this juncture, I do not think it will change her management significantly. Dr. Navarrete had discussed resuscitation status with the patient and the family earlier today. A do not resuscitate level 1 has been placed in the chart. I agree with this discussion and the results of the discussion. At this juncture, recommend palliative measures and hospice should be considered. cc: Christiano Rodriguez MD
[2016-10-12 16:36] LABS: AGAP 18; ALKALINE PHOSPHATASE 140 U/L (32-104); BUN 11 mg/dL (8-22); CALCIUM 7.1 mg/dL (8.8-10.2); CHLORIDE 106 mmol/L (98-107); COSMO 278; GOT 24 U/L (10-30); GPT < 5 U/L (10-36); POTASSIUM 3.1 mmol/L (3.5-5.1); SODIUM 140 mmol/L (136-145); TCO2 16 mmol/L (25-35); TOTAL BILIRUBIN 0.36 mg/dL (0.20-1.00); TOTAL PROTEIN 4.3 g/dL (6.3-8.3)
--- NOTE | 2016-10-12 22:01 | PALLIATIVE CARE CONSULTATION ---
DATE: 10/12/2016 REQUESTING PHYSICIAN: Rufino Nathan MD REASON FOR CONSULTATION: Goals of care. HISTORY OF PRESENT ILLNESS: This is a 46-year-old, female with a past medical history of metastatic breast cancer diagnosed in 2013 who is being followed by Dr. Guerra. She had her last chemotherapy treatment was on 09/28/2016. She was most recently admitted on 10/09/2016 after presenting to the ER with profound weakness and profuse nasal bleeding. The patient's family is at the bedside and state that they have noticed a functional decline over the last couple of months with a more progressive decline over the last 2-3 week's time. They state that she has been bed-bound for the last 2 weeks and requiring assistance with all of her activities of daily living. They admit that she has had roughly a 30-pound weight loss within the last 6 months. Currently, she is lying in the hospital bed complaining of shortness of breath. She has significant pain and shortness of breath with any movement. Her appetite is described as poor. The family states that she has been taking in only nutritional shakes for the last couple of weeks, but now is taking in very minimal food and fluid. The Palliative Care Team has been consulted to assist with goals of care. REVIEW OF SYSTEMS: Ten point review of system has been conducted and otherwise negative except those mentioned in the HPI. PAST MEDICAL HISTORY: Metastatic breast cancer. PAST SURGICAL HISTORY: 1. Cholecystectomy. 2. . 3. Port-A-Cath placement. SOCIAL HISTORY: She is and has 2 children. Alcohol, tobacco and drug use have been denied. FAMILY HISTORY: Positive for breast cancer in the patient's grandmother. PHYSICAL EXAMINATION: General: This is a 46-year-old, female who appears weak and in respiratory distress. HEENT: Atraumatic, normocephalic. Neck: Supple. Cardiovascular: Increased rate, regular rhythm. Pulmonary: Lung sounds are diminished with scattered rhonchi and crackles. Respirations are labored especially with conversation. Abdomen: Soft. Extremities: Pulses are palpable. She does have trace bilateral lower extremity edema. IMPRESSION: This is a 46-year-old, unfortunate female with a past medical history as listed above in the HPI. The Palliative Care Team was consulted to assist with goals of care. I met with the patient and her family to discuss her current state of health and prognosis. The patient is complaining of shortness of breath. Dilaudid was given during my visit and appears to be effective. The patient also complains of constipation and is complaining of abdominal cramping associated with that. The family had questions regarding discharge plan and home hospice services. Hospice services as inpatient and outpatient were discussed. The made the statement that he feels like his is tired and that she is ready to go home and be kept comfortable surrounded by her family. I do feel this is very appropriate for this patient. I feel that this patient carries a prognosis of only days to weeks. It appears that her palliative performance scale is 20%. She is a Do Not Resuscitate level 1. The Palliative Care Team will continue to follow. Thank you for this consultation. Dictated by VIOLET Rae for Christiano Rodriguez MD cc: VIOLET Rae MD
--- NOTE | 2016-10-14 06:33 | DISCHARGE SUMMARY ---
ADMISSION DATE: 10/09/2016 DISCHARGE DATE: 10/12/2016 CONSULTATIONS: 1. Dr. Guerra with hematology/oncology. 2. Luna De La Rosa with palliative care. PERTINENT PROCEDURES: CT of the chest showed interval significant worsening of metastatic disease throughout both lungs with an increase in size and number of the innumerable metastatic lesions, worsening metastatic disease of the liver, or an adrenal mass worrisome for metastatic disease similar to previous study, interval development of moderate to large size pleural effusion. That is worrisome for malignant effusion, left axillary nodule mass actually smaller than the previous study. DISCHARGE DIAGNOSES: 1. Metastatic breast cancer. 2. Multiple lung metastasis with left lower lobe infiltrate pulmonary edema. 3. Epistaxis. 4. Thrombocytopenia. 5. Respiratory failure. 6. Anemia of chronic disease. 7. Constipation. 8. DNR level 1, on 10/12/2016 at 15:50. HOSPITAL COURSE: Ms. Frey is a 46-year-old, female with a past medical history of metastatic breast cancer diagnosed in [address] Guerra. Her last chemotherapy treatment was 09/28/2016, most recently admitted on 10/09/2016 after she presented to the ED with profound weakness and profuse nasal bleeding. The family noticed a functional decline over the last couple of months with a marked progressive decline over the last 2-3 weeks. She had been bed- bound for the last 2 weeks requiring assistance with all ADLs. She has roughly had a 30 pounds weight loss within 6 months. She is having shortness of breath, significant pain, along with the shortness of breath with any type of movement, no appetite. The palliative care team was brought in due to the patient's prognosis on 10/12/2016. They were brought in to assist with goals of care. They discussed her current state of health, as well as her health and prognosis. They discussed home versus inpatient hospice. Palliative care felt that the patient only had days to weeks. The patient remained a DNR level 1 and she passed at 15:50 on 10/12/2016. Dictated by VIOLET Cano for Rufino Nathan MD cc: Rufino Nathan MD
== END 2016-10-12 15:50 | disposition expired ==
LOC: ED 12:22 → 3N 16:00 → SUATTDRO 16:00
PROVIDERS: ATTEND Internal Medicine